=== PATIENT | female | born 1990 | race African-American/Black ===

== ENCOUNTER 2024-09-03 15:36 | Emergency (ER) | payer MEDICAID ==
[~2024-09-03] VITALS: Ht 170.2 cm; Wt 54.9 kg
[2024-09-03 15:41] VITALS: BP 126/89; PULSE 85; RESP 14; TEMP 98.9; O2SAT 99
[2024-09-03] MEDS ORDERED: AMOX-580 PO (16:29)
[2024-09-03] MEDS ORDERED: CIPR2.5D21 LEFT EAR (16:29)
[2024-09-03] MEDS: amox tr/potassium clavulanate 875/125mg TAB PO ONE (16:36)
[2024-09-03] MEDS: acetaminophen 325mg tablet PO ONE (16:38)
[2024-09-03] MEDS: ciprofloxacin 0.3% 2.5ml ophthalmic solution LEFT EAR ONE (16:47)
== END 2024-09-03 16:55 | disposition home or self-care (01) ==
LOC: ER 15:38
DX: H72.92 Unspecified perforation of tympanic membrane, left ear (principal); H60.92 Unspecified otitis externa, left ear; H66.92 Otitis media, unspecified, left ear; Z79.2 Long term (current) use of antibiotics
CPT/HCPCS: 99284